=== PATIENT | male | born 1985 | race Caucasian/White ===

== ENCOUNTER 2016-10-02 16:29 | Emergency (ER) | payer BC ==
--- NOTE | ~2016-10-02 | ER ---
PATIENT'S NAME: NBA NEWMAN [facility] AGE: 31 Y [address] ROOM: [place] [address] LOCATION: [facility] ADMIT DATE: 10/02/2016 ER/Outpatient Report DISCHARGE DATE: 10/02/2016 FAMILY PHYSICIAN: Landen Villalba MD ATTENDING PHYSICIAN: Finn Snyder HISTORY OF PRESENT ILLNESS: This patient is a 31-year-old came in with a 3-week history of anterior chest pain and pressure. The patient was initially seen by Dr. Snyder. See Dr. Snyder's dictation in regard to the chief complaint, history of present illness, past medical history, physical exam, laboratory, x-ray study results. Dr. Snyder transferred the patient's care over to me at shift change. He asked me to follow up the patient's CT scan with PE protocol, results, final diagnosis, and treatment plan. PE study with CT scan of the chest was negative for pulmonary embolism. CT scan was read by Radiology, see dictated transcribed report. IMPRESSION: Anterior chest pain, etiology uncertain, most likely musculoskeletal. It appear that he has no cardiac etiology, pulmonary etiology. PLAN: The patient was given Toradol 60 mg IM in the emergency room, Solu-Medrol 125 mg IM in the emergency room. Discharged home. Observation. Activity as tolerated. Fluids and diet as tolerated. Heating pad to anterior chest pain area intermittently as needed. Naprosyn 500 mg b.i.d. with food #20, Medrol Dosepak to take as directed. Follow up with personal physician as needed. Discussion ensued with the patient concerning my findings and recommendations, he understands. DOUGLAS TEIXEIRA MD SDS/modl /[id number] d: 10/03/166 t: 10/03/16 1812, OUTPATIENT REPORT
--- NOTE | ~2016-10-02 | ER ---
PATIENT'S NAME: NBA NEWMAN [facility] AGE: 31 Y [address] ROOM: [place] [address] LOCATION: [facility] ADMIT DATE: 10/02/2016 ER/Outpatient Report DISCHARGE DATE: 10/02/2016 FAMILY PHYSICIAN: Landen Villalba MD ATTENDING PHYSICIAN: Finn Snyder CHIEF COMPLAINT: Chest pain. HISTORY OF PRESENT ILLNESS: The patient states he has had an aching chest pain for the last 3 weeks. He states that it has been present at every waking hour since then. He has an appointment to be evaluated, but was told by a family member, who has some medical experience that he should come to the ER immediately for evaluation. He denies any shortness of breath, pain in his legs, recent travel, history of hypertension, diabetes, high cholesterol, or even family history of cardiac disease that he is aware of are all negative. No clotting disorder. The pain is located in the left part of his chest. It does radiate kind of across his chest, but does not really go down to either arm and he occasionally feels at higher up in his neck. He has not done anything to make this better, otherwise. PAST MEDICAL HISTORY: Notable for some mild depression. SOCIAL HISTORY: He drinks socially. ALLERGIES: NONE. MEDICATIONS: None. PAST SURGICAL HISTORY: None. REVIEW OF SYSTEMS: All systems were reviewed and negative except as noted in the HPI. PHYSICAL EXAMINATION: VITAL SIGNS: Blood pressure 138/85, pulse 105, respiratory rate 16, and SpO2 is 98% on room air. GENERAL: Age-appropriate male in no obvious pain or distress. Relaxed and PATIENT'S NAME: NBA NEWMAN [facility] AGE: 31 Y [address] ROOM: [place] [address] LOCATION: [facility] ADMIT DATE: 10/02/2016 ER/Outpatient Report DISCHARGE DATE: 10/02/2016 FAMILY PHYSICIAN: Landen Villalba MD ATTENDING PHYSICIAN: Finn Snyder comfortable on the exam table. NEUROLOGIC: Awake and alert. GCS 15. No focal deficits. No asymmetry on exam. HEENT: Normocephalic and atraumatic. Eyes are PERRL. Oropharynx is clear. NECK: Supple. Trachea is midline. CHEST: Heart is regular rate and rhythm with no murmurs. LUNGS: Clear to auscultation bilaterally with no rhonchi, wheezes, or rales. ABDOMEN: Soft, nontender, and nondistended. No rebound or guarding. SPINE: Back is normal to inspection and palpation. No CVA tenderness. EXTREMITIES: Warm and well perfused. No obvious erythema or swelling or edema. SKIN: Warm, dry, and intact. LABORATORY DATA AND IMAGING STUDIES: Labs and X-rays: Chest x-ray, unremarkable per my read. EKG with no evidence of ischemia. Troponin is below threshold. CMS without appreciable abnormality. Magnesium is 2.1. CBC without abnormality. INR is below 1.0. D- dimer is 0.72. EKG is sinus rhythm, rate of 85 with normal intervals and axis. No acute ischemia or dysrhythmia. CT is pending. IMPRESSION: Atypical chest pain. EMERGENCY DEPARTMENT COURSE: The patient was seen and evaluated. Based on duration and lack of risk factors, single troponin rules out ACS. Not consistent with pneumonia at this time. With tachycardia, atypical chest pain, PE was considered. D-dimer was elevated. CT PE protocol is pending at the time of hand off to Dr. Law at 1800 hours. Plan is to follow that up. Re-evaluate as needed and disposition accordingly. MD CALLIE PENA/brittany /[id number] d: 10/03/16 1229 t: 10/04/16 1012, OUTPATIENT REPORT
[2016-10-02 17:03] LABS: BASOPHIL % 0.4 %; EOSINOPHIL # 0.1 K/uL (0.0-0.5); HEMATOCRIT 39.2 % (37.0-53.0); HEMOGLOBIN 13.6 g/dL (12.0-17.0); IMMATURE GRANULOCYTE % 0.1 %; LYMPHOCYTE # 2.8 K/uL (0.8-4.0); LYMPHOCYTE % 35.9 %; MCH 29.8 pg (27.0-34.0); MCHC 34.7 gm/dL (32.0-36.5); MONOCYTE # 0.5 K/uL (0.0-1.0); MONOCYTE % 6.3 %; MPV 9.7 fl (9.4-12.4); NEUTROPHIL # (ANC) 4.3 K/uL (1.4-9.0); NEUTROPHIL % 56.3 %; NRBC % 0 /100WBC (0-0.00); PLATELET COUNT 253 K/uL (150-450); RBC 4.56 M/uL (4.00-6.00); WBC 7.7 K/uL (4.0-11.0)
[2016-10-02 17:11] LABS: INR - (THERAPEUTIC) 0.95 (0.92-1.07); PTT 28 SECONDS (25-32)
[2016-10-02 17:25] LABS: ALBUMIN 4.2 gm/dL (3.5-5.0); ALK PHOS 52 IU/L (33-138); ALT 34 IU/L (12-78); ANION GAP 13.2 (10.0-19.0); AST 16 IU/L (10-40); BLOOD UREA NITROGEN 19 mg/dL (6-24); CALCIUM 9.1 mg/dL (8.5-10.5); CHLORIDE 106 mMol/L (96-110); CO2 26 mMol/L (22-32); CPK 51 IU/L (35-332); CREATININE 1.1 mg/dL (0.6-1.3); ESTIMATED GFR (MDRD EQUATION) > 60; MAGNESIUM 2.1 mg/dL (1.8-2.6); POTASSIUM 4.2 mMol/L (3.7-5.1); SODIUM 141 mMol/L (135-145); TOTAL BILIRUBIN 0.4 mg/dL (0.0-1.5); TOTAL PROTEIN 7.9 g/dL (6.0-8.4)
== END 2016-10-02 18:45 | disposition disaster alternative care site (69) ==
LOC: GMED 16:29
PROVIDERS: Emergency Medicine
DX: R07.89 Other chest pain (principal); F32.9 Major depressive disorder, single episode, unspecified
CPT/HCPCS: J1885; J2930; Q9967